=== PATIENT | male | born 1975 | race Two or more races ===

== ENCOUNTER → 2021-12-07 09:03 | Outpatient (BNVA) | payer BC, SELFPAY | PROVIDERS: PCP Internal Medicine; Visit Provider Nurse Practitioner Family ==

== ENCOUNTER → 2022-01-16 13:55 | Outpatient (REF) | payer BC, SELFPAY | LOC: HO.SL 13:55 | PROVIDERS: PCP Internal Medicine; Visit Provider Nurse Practitioner Family | DX: G47.33 Obstructive sleep apnea (adult) (pediatric) (principal); R06.83 Snoring; R40.0 Somnolence | CPT/HCPCS: 95806 ==

== ENCOUNTER → 2022-04-06 21:03 | Outpatient (REF) | payer OTHER, SELFPAY | LOC: HO.SL 21:03 | PROVIDERS: Visit Provider Nurse Practitioner Family | DX: G47.33 Obstructive sleep apnea (adult) (pediatric) (principal) | CPT/HCPCS: 95811 ==

== ENCOUNTER 2022-05-19 08:02 | Outpatient (REF) | payer OTHER, SELFPAY ==
[2022-05-19 08:11] LABS: MANUAL DIFF FLAG NO
[2022-05-19 08:28] LABS: Basophils Absolute Auto 0.1 X10*3/uL (0.0-0.2); Basophils Percent Auto 0.9 % (0-2); Eosinophils Absolute Auto 0.2 X10*3/uL (0.0-0.4); Eosinophils Percent Auto 2.4 % (0-4); Hematocrit 43.7 % (42.0-52.0); Hemoglobin 14.7 g/dl (14.0-18.0); Imm Gran Abs Auto 0.14 X10*3/uL (0.00-0.03); Imm Gran Pct Auto 1.4 % (0.0-0.4); Lymphocytes Absolute Auto 3.8 X10*3/uL (1.2-4.9); Lymphocytes Percent Auto 38.1 % (20-40); Mean Corpuscular HGB Conc 33.6 g/dl (31.0-36.0); Mean Corpuscular Hemoglobin 30.6 pg (27.0-33.0); Mean Corpuscular Volume 90.9 fL (80.0-98.0); Mean Platelet Volume 9.4 fL (9.4-12.4); Monocytes Absolute Auto 0.7 X10*3/uL (0.1-1.2); Monocytes Percent Auto 6.7 % (2-11); Neutrophils Absolute Auto 5.1 x10*3/uL (2.0-8.3); Neutrophils Percent Auto 50.5 % (45-73); Platelet Count 343 X10*3/uL (160-400); Red Blood Count 4.81 X10*6/uL (4.60-5.80); Red Cell Distribution Width 12.7 % (11.0-16.0)
[2022-05-19 08:55] LABS: Alanine Aminotransferase 18 U/L (0-40); Alkaline Phosphatase 124 U/L (39-117); Anion Gap 13 (12-20); Aspartate Amino Transferase 14 U/L (5-37); Bilirubin Total 0.5 mg/dL (0.0-1.0); Blood Urea Nitrogen 12 mg/dL (9-16); Calcium 9.4 mg/dL (8.4-10.2); Carbon Dioxide 29 mmol/L (22-29); Chloride 103 mmol/L (96-108); Estimated Glomerular Filt Rate > 60; Glucose Random 201 mg/dL (60-115); Iron 51 mcg/dL (45-160); Percent Iron Saturation 14 % (15-50); Potassium 5.2 mmol/L (3.3-5.1); Sodium 140 mmol/L (135-145); Total Iron Binding Capacity 359 mcg/dL (228-428); Total Protein 6.6 g/dL (6.5-8.0); Unsaturated Iron Binding 308 ug/dL
[2022-05-19 09:18] LABS: Ferritin 216 ng/mL (20-250); TSH reflex Free T4 0.68 uIU/mL (0.32-4.0)
== END 2022-05-19 08:03 | disposition home or self-care (01) ==
LOC: HO.LAB 08:02
PROVIDERS: PCP Internal Medicine; Visit Provider Nurse Practitioner Family
DX: G47.61 Periodic limb movement disorder (principal); R53.83 Other fatigue
CPT/HCPCS: 36415; 80053; 82728; 83540; 84443; 85025

== ENCOUNTER 2022-05-26 07:05 | Outpatient (REF) | payer OTHER, SELFPAY ==
[2022-05-26 08:15] LABS: Anion Gap 16 (12-20); Blood Urea Nitrogen 16 mg/dL (9-16); Calcium 9.5 mg/dL (8.4-10.2); Carbon Dioxide 28 mmol/L (22-29); Chloride 101 mmol/L (96-108); Estimated Glomerular Filt Rate > 60; Glucose Random 170 mg/dL (60-115); Potassium 4.9 mmol/L (3.3-5.1); Sodium 140 mmol/L (135-145)
== END 2022-05-26 07:06 | disposition home or self-care (01) ==
LOC: HO.LAB 07:05
PROVIDERS: PCP Internal Medicine; Visit Provider Nurse Practitioner Family
DX: E78.5 Hyperlipidemia, unspecified (principal); I10 Essential (primary) hypertension
CPT/HCPCS: 36415; 80048

== ENCOUNTER → 2022-10-23 09:07 | Outpatient (BNVA) | payer OTHER, SELFPAY | PROVIDERS: PCP Internal Medicine; Visit Provider Nurse Practitioner Family | DX: G47.33 Obstructive sleep apnea (adult) (pediatric) (principal) ==